=== PATIENT | female | born 1985 | race Caucasian/White ===

== ENCOUNTER 2018-11-24 23:25 | Emergency (ER) | payer BC ==
[~2018-11-24] VITALS: Ht 152.4 cm; Wt 72.6 kg
[2018-11-24 23:29] VITALS: Ht 152.4 cm; Wt 72.6 kg
[2018-11-25 00:10] LABS: UA SPECIFIC GRAVITY <=1.005 (1.005-1.035); microscopic required? YES; urine erythrocyte 1+ (NEGATIVE)
[2018-11-25 00:47] VITALS: BP 117/78
== END 2018-11-25 00:47 | disposition home or self-care (01) ==
LOC: ED 23:25
PROVIDERS: Emergency Medicine
DX: N39.0 Urinary tract infection, site not specified (principal)
CPT/HCPCS: J1885; Q0162